=== PATIENT | male | born 1945 | race Two or more races ===

== ENCOUNTER → 2017-09-17 | Day surgery (SDC) | payer BC, MEDICARE ==
[~2017-09-17] MED LIST: CEFTRIAXONE SOD 1 GM VIAL ONE; DESFLURANE 240 ML BTL INH ONE; DEXAMETHASONE SOD PHOS INJ 4 MG/ML VIAL ONE; FENTANYL CITRATE/PF 100MCG/2 ML INJ ONE; GENTAMICIN 80MG/NS 100 ML 200 ML IV ONE; LIDOCAINE HCL 2% LOCAL INJ 5 ML SDV VIAL INJ ONE; LISINOPRIL2.5 MG PO; METFORMIN HCL1000 MG PO; MIDAZOLAM HCL 2 MG/2 ML VIAL ONE; ONDANSETRON HCL INJ 2 MG/ML VIAL ONE; ONGLYZA5 MG PO; PRAVASTATIN SOD10 MG PO; PROPOFOL IV EMULSION 10 MG/ML 20 ML VIAL ONE; SYNTHROID125 MCG PO; TAMSULOSIN HCL0.4 MG PO
--- OUTSIDE RECORDS SUMMARY | 2017-09-17 07:59 | XMS REPORT | Clinical Summary ---
Author Author [facility] Organization [facility] Address Unknown Phone Unavailable Care Team Providers Care Android Architect Name Role Phone Yvonne Ellis MD PCP Allergies No Known Allergies Current Medications Prescription Sig. Disp. Refills Start End Date Status Date ACCU-CHEK JIM PLUS TEST CHECK BLOOD SUGAR BID 0 07/03/19 Active STRP strip test strips 18 levothyroxine (SYNTHROID, 0 07/09/19 Active LEVOXYL) 125 mcg tablet 18 metFORMIN (GLUCOPHAGE) 0 07/27/19 Active 1,000 mg tablet 18 pravastatin (PRAVACHOL) TK 1 T PO QD HS 3 07/27/19 Active 40 MG tablet 18 ONGLYZA 5 mg tablet 0 07/30/19 Active 18 lisinopril Take 2.5 mg by mouth Active (PRINIVIL,ZESTRIL) 2.5 mg daily. tablet alfuzosin (UROXATRAL) 10 Take 1 tablet (10 mg 90 tablet 3 08/07/19 Active mg 24 hr tablet total) by mouth daily. 18 levoFLOXacin (LEVAQUIN) TK 1 T PO QAM 0 07/22/19 08/07/19 Discontin 500 MG tablet 18 18 ued tamsulosin (FLOMAX) 0.4 TK ONE C PO QHS 0 07/22/19 08/07/19 Discontin mg capsule,extended 18 18 ued release 24hr Active Problems Problem Noted Date Elevated PSA 08/07/2017 BPH with obstruction/lower urinary tract symptoms 08/07/2017 Family history of prostate cancer 08/07/2017 Encounters Date Type Specialty Care Team Description 08/07/2017 Office Visit Urology Walker Fish MD Elevated PSA ( Primary Dx); BPH with obstruction/lower urinary tract symptoms; Family history of prostate cancer after 09/16/2016 Family History Medical History Relation Name Comments Prostate cancer Father Diabetes Mother Heart attack Mother Relation Name Status Comments Father Mother Social History Tobacco Use Types Packs/Day Years Used Date Never Smoker Smokeless Tobacco: Never Used Alcohol Use Drinks/Week oz/Week Comments No Sex Assigned at Date Recorded Not on file Last Filed Vital Signs Not on file Plan of Treatment Date Type Specialty Care Team Description 02/02/2018 Clinical Urology Support 02/10/2018 Office Visit Urology Walker Fish MD [address] [facility] [address] [place] [address] Health Maintenance Due Date Last Done Comments COLONOSCOPY 1997 ZOSTER VACCINE 2007 PNEUMOCOCCAL 2012 POLYSACCHARIDE VACCINE AGE 65 AND OVER PNEUMOCOCCAL-13 2012 INFLUENZA VACCINE 01/21/2017 Results * ECG 12 lead (09/15/2017 9:41 AM) Component Value Ref Range Ventricular rate 77 Atrial rate 77 MD interval 116 QRSD interval 92 QT interval 382 QTC interval 432 P axis 1 35 QRS axis 1 24 T wave axis 61 EKG impression Sinus rhythm with premature atrial complexes-Otherwise normal ECG-In automated comparison with ECG of 18-APR-2016 15:02,-fusion complexes are no longer present-premature atrial complexes are now present- Specimen Performing Laboratory [facility] [id number] [place] [address] after 09/16/2016 Insurance Payer Benefit Subscriber ID Type Phone Address Plan / Group BCBS ANTHEM xxxxxxxxxxxx PPO [place] MEDICARE MEDICARE xxxxxxxxxx Medicare [place], [place] PART A AND B AARP AARP xxxxxxxxx-xx [place] [address]
--- NOTE | 2017-09-17 15:16 | Operative Report ---
DATE OF PROCEDURE: September 17, 2017 PREOPERATIVE DIAGNOSES 1. BPH. 2. Rule out adenocarcinoma of the prostate. 3. Abnormal prostate-specific antigen. POSTOPERATIVE DIAGNOSES 1. BPH. 2. Rule out adenocarcinoma of the prostate. 3. Abnormal prostate-specific antigen. 4. Distal bulbous urethral stricture. OPERATION 1. Transrectal ultrasound of the prostate. 2. Transrectal ultrasound-guided needle biopsies. 3. Cystourethroscopy. SOFTWARE ENGINEERING ASSOCIATE MANAGER: Dr. Gold ANESTHETIC: General. INDICATIONS: Mr. Arevalo is a 72-year-old male who presented with a chief complaint of lower urinary tract obstructive symptoms. His PSA was 6.6. Prostate exam showed the prostate to be about 40 to 50 grams with a firm area. DESCRIPTION OF PROCEDURE: This patient was placed on the table in the lithotomy position. Transrectal ultrasound of the prostate was performed. The prostate measured 5.07 x 3.90 x 5.87 with a total volume of 60.72 mL. There were multiple prostatic calcifications with postcalcification shadowing. There was a vague area on the right peripheral zone that measured 18 x 16 mm. Transrectal ultrasound-guided needle biopsies were obtained from the hypoechoic area and also from the normal-appearing prostate to map it for any multifocal carcinoma. This patient was then prepped and draped in a sterile manner. A 23-E[place] cystoscope was used, and cystourethroscopy was performed. It was noted that the urethra was normal except for the distal bulbous urethra, which had a strictured area that was easily passable. The prostatic urethra was about 4 cm long, bilobar and occlusive. Cystoscopy was then performed using both right angle and foroblique lens. It was noted that the bladder mucosa was normal. Both ureteral orifices were seen and were in normal position, configuration, and efflux. The bladder wall was moderately trabeculated with cellules and diverticula. The bladder was drained and the cystoscope removed. Plan for this patient is to be placed on Levaquin 500 mg once a day for 1 week and Ultracet tablet 1 every 6 hours p.r.n., and he was given 15. He is to return to the office in 1 week. Job#: [id number]
== END | disposition home or self-care (01) ==
LOC: OR 07:57
PROVIDERS: ATTEND Specialist
DX: N40.1 Benign prostatic hyperplasia with lower urinary tract symptoms (principal); N13.8 Other obstructive and reflux uropathy; N35.9 Urethral stricture, unspecified; N32.89 Other specified disorders of bladder; N32.3 Diverticulum of bladder; N42.89 Other specified disorders of prostate; I49.1 Atrial premature depolarization; I10 Essential (primary) hypertension; E03.9 Hypothyroidism, unspecified; E11.9 Type 2 diabetes mellitus without complications; R97.20 Elevated prostate specific antigen [PSA]
CPT/HCPCS: 36415; 52000; 55700; 76872; 76942; 82948; 88305; J0696; J1100; J1580; J2001; J2250; J2405